=== PATIENT | female | born 1970 | race Caucasian/White ===

== ENCOUNTER 2019-01-23 08:09 | Observation (INO) ==
[2019-01-23] MEDS ORDERED: ASPIRIN 325 MG TABLET PO STA (09:06)
[2019-01-23] MEDS ORDERED: ONDANSETRON 4 MG/2 ML VIAL IV PRN ×2 (09:06→12:25)
[2019-01-23] MEDS ORDERED: NITROGLYCERIN 2% OINT 1 INCH/GM PACK TOP STA (09:06)
[2019-01-23 09:19] LABS: Basophils % 0.3 % (0.0-0.8); Eosinophils # 0.1 10*3/uL (0.0-0.87); Eosinophils % 1.7 % (0.00-10.9); Hematocrit 40.4 VOL% (35.7-47.0); Hemoglobin 12.8 GM/DL (12.0-16.0); Immature Granulocytes % 0.3 %; Immature Granulocytes Absolute 0.02 #; Lymphocytes # 0.9 10*3/uL (1.4-4.0); Lymphocytes % 15.7 % (21.3-54.2); Mean Corpuscular HGB Conc 31.7 GM/DL (32-36); Mean Corpuscular Hemoglobin 30 PG (27-34); Mean Corpuscular Volume 94.8 FL (87-102); Mean Platelet Volume 9.1 FL (9.6-12.0); Monocytes # 0.3 10*3/uL (0.11-0.8); Monocytes % 5.4 % (1.7-12.7); Neutrophils # 4.4 10*3/uL (1.4-7.4); Neutrophils % 76.6 % (38.7-73.9); Platelet Count 260 T/CUMM (130-400); Red Blood Count 4.26 MC/CUMM (3.8-5.5); White Blood Count 5.8 T/CUMM (4-12)
[2019-01-23 09:22] LABS: Apearance,Urine CLEAR (Clear); Bilirubin,Urine Negative (Negative); Blood, Urine Small mg/dL (Negative); Glucose,Urine (UA) Negative (Negative); Ketones,Urine Negative (Negative); Nitrite,Urine Negative (Negative); Protein,Urine Negative; RBC,Urine 2 /HPF (0-4); Squamous Epithelial Cell,Urine Occasional /HPF (0-10); Urine Color Colorless (Yellow); Urine Specific Gravity 1.002 (1.001-1.035); Urine Urobilinogen < 2.0 EU/DL (0.2-1.0); WBC,Urine 1 /HPF (0-6)
[2019-01-23 09:24] LABS: INR 0.9; PT Patient Result 10.3 SECS; Partial Thromboplastin Time 29.2 SECS (0-40)
[2019-01-23 09:32] LABS: Alanine Aminotransferase 16 U/L (13-56); Albumin 3.8 G/DL (3.4-5.0); Alkaline Phosphatase 73 U/L (45-117); Aspartate Amino Transferase 12 U/L (0-37); Bilirubin,Total < 0.39 MG/DL (0.2-1.0); Blood Urea Nitrogen 14 MG/DL (7-18); Glucose 102 MG/DL (74-106); Osmolality,Calculated 283.1 MOS/KG (273-304); Potassium 3.8 MMOL/L (3.5-5.1); Sodium 142 MMOL/L (136-145); Total Protein 7.8 G/DL (6.4-8.3)
[2019-01-23 09:58] LABS: Barbiturates Screen,Urine Negative (Negative); Benzodiazepines Screen,Urine Negative (Negative); Cannabinoid Screen,Urine Positive (Negative); Opiate Screen,Urine Negative (Negative); Phencyclidine Screen,Urine Negative (Negative)
[2019-01-23] MEDS ORDERED: ACETAMINOPHEN 325 MG TABLET PO PRN (12:25)
[2019-01-23] MEDS ORDERED: ALUM/MAG/SIMETH/LIDO VISC 1:1 30 ML BOTTLE PO STA (15:20)
[2019-01-23] MEDS: NICOTINE 21 MG/24 HR PATCH TRANSDERM SCH (15:49)
[2019-01-23] MEDS: PANTOPRAZOLE 40 MG TABLET PO SCH (15:55)
[2019-01-23] MEDS ORDERED: KETOROLAC 15 MG/1 ML VIAL IV PRN (16:00)
[2019-01-23] MEDS ORDERED: GLUCOSAMINE 500 MG TABLET PO SCH (21:00)
[2019-01-23] MEDS ORDERED: BLACK COHOSH PO SCH (21:00)
[2019-01-24 05:43] LABS: Basophils % 0.3 % (0.0-0.8); Eosinophils # 0.1 10*3/uL (0.0-0.87); Eosinophils % 2.2 % (0.00-10.9); Hematocrit 41.6 VOL% (35.7-47.0); Hemoglobin 13.3 GM/DL (12.0-16.0); Immature Granulocytes % 0.3 %; Immature Granulocytes Absolute 0.02 #; Lymphocytes # 1.2 10*3/uL (1.4-4.0); Lymphocytes % 18.4 % (21.3-54.2); Mean Corpuscular Hemoglobin 30 PG (27-34); Mean Corpuscular Volume 94.3 FL (87-102); Mean Platelet Volume 8.8 FL (9.6-12.0); Monocytes # 0.4 10*3/uL (0.11-0.8); Monocytes % 6.1 % (1.7-12.7); Neutrophils # 4.5 10*3/uL (1.4-7.4); Neutrophils % 72.7 % (38.7-73.9); Platelet Count 262 T/CUMM (130-400); Red Blood Count 4.41 MC/CUMM (3.8-5.5); Red Cell Distribution Width 11.9 % (9.3-17.3); White Blood Count 6.2 T/CUMM (4-12)
[2019-01-24 06:04] LABS: Calcium 9.3 MG/DL (8.5-10.1); Osmolality,Calculated 272.8 MOS/KG (273-304); Potassium 3.8 MMOL/L (3.5-5.1); Risk Ratio 4.4; VLDL CHOLESTEROL 23.8 MG/DL
[2019-01-24 07:54] VITALS: BP 117/59
[2019-01-24] MEDS: PANTOPRAZOLE 40 MG TABLET PO SCH (08:40)
[2019-01-24] MEDS: NICOTINE 21 MG/24 HR PATCH TRANSDERM SCH (08:41)
[2019-01-24] MEDS ORDERED: ASPIRIN EC 81 MG TABLET PO SCH (09:00)
[2019-01-24] MEDS ORDERED: ENOXAPARIN 40 MG/0.4 ML SYRINGE SUBCUT SCH (09:00)
[2019-01-24] MEDS ORDERED: SIMVASTATIN 10 MG TABLET PO SCH (21:00)
== END 2019-01-24 12:10 | disposition home or self-care (01) ==
LOC: N.EDINP 08:09 → N.ED 08:09 → N.TELES 15:15
PROVIDERS: ADMIT Internal Medicine; ATTEND Internal Medicine